=== PATIENT | female | born 1955 | race Caucasian/White ===

== ENCOUNTER 2022-12-10 14:32 | Outpatient (CLI) | payer MEDICAID, OTHER ==
[~2022-12-10 14:32] MED LIST: ALBU17AE26 PO; APIX5TAB3 PO; CETI10TA15 PO; CHOL500050 PO; CYAN250010 PO; FURO40TA4 PO; HYDR28CR14 TOP; LISI5TAB22 PO; POTA8CAP20 PO; ROPI1TAB47 PO; SEMA0.258 SQ; TIOT4MIS2 INH
== END 2022-12-10 23:59 | disposition home or self-care (01) ==
LOC: CARD DIAG 14:32
PROVIDERS: ATTEND Internal Medicine Infectious Disease
DX: I34.0 Nonrheumatic mitral (valve) insufficiency (principal); B37.9 Candidiasis, unspecified
CPT/HCPCS: 93308